=== PATIENT | female | born 1975 | race Two or more races ===

== ENCOUNTER 2017-08-21 02:39 | Emergency (ER) | payer OTHER ==
[~2017-08-21] VITALS: Ht 167.6 cm; Wt 82.6 kg
[2017-08-21 03:37] VITALS: BP 114/84
[2017-08-21] MEDS ORDERED: KETOROLAC TROMETH 30 MG/ML 1ML VIAL IV ONE (03:45)
[2017-08-21] MEDS ORDERED: SODIUM CHLORIDE 0.9% 1,000 ML IV ONE (03:45)
[2017-08-21 04:04] LABS: Basophils # (auto) 0.1 uL; Basophils % (auto) 0.8 % (0.0-2.0); Eosinophils # (auto) 0.4 uL; Eosinophils % (auto) 3.5 % (0.0-7.0); Hematocrit 39.6 % (36.0-46.0); Hemoglobin 13.3 g/dL (12.2-16.2); Lymphocytes # (auto) 1.7 uL; Lymphocytes % (auto) 17.5 % (10.0-50.0); Mean Corpuscular Hemoglobin 31.4 pg (28.0-32.0); Mean Corpuscular Hgb Conc. 33.6 g/dL (32.0-36.0); Mean Corpuscular Volume 93.6 fL (80.0-100.0); Mean Platelet Volume 8.2 fL (6.9-10.8); Monocytes # (auto) 0.6 uL; Monocytes % (auto) 6.4 % (0.0-12.0); Neutrophils # (auto) 7.2 uL; Neutrophils % (auto) 71.8 % (37.0-80.0); Platelet Count (auto) 240 10^3/uL (140-450); Red Cell Distribution Width 13.7 % (11.8-14.3)
[2017-08-21 04:25] LABS: Albumin 3.6 g/dL (3.4-5.0); BUN/Creatinine Ratio 20.8; Calcium 8.8 mg/dL (8.5-10.1); Potassium 3.7 mmol/L (3.5-5.1)
[2017-08-21 04:28] LABS: Bilirubin, Total 0.5 mg/dL (0.2-1.0); Total Protein 7.1 g/dL (6.4-8.2)
[2017-08-21 04:49] LABS: Urine Bilirubin Negative (Negative); Urine Blood 1+ /uL (Negative); Urine Color Yellow (Yellow); Urine Glucose Normal (Normal); Urine Ketone 1+ (Negative); Urine Mucus FEW (None Seen); Urine Nitrite Negative (Negative); Urine RBC 2 /hpf (0 - 4); Urine Squamous Epithelial Cell FEW /hpf (<5); Urine Urobilinogen Normal (Negative); Urine pH 5.5 (5.0-8.0)
== END 2017-08-21 05:52 | disposition home or self-care (01) ==
LOC: ER 02:39
DX: R10.9 Unspecified abdominal pain (principal); R31.9 Hematuria, unspecified; M54.5 Low back pain
CPT/HCPCS: 36415; 74176; 80053; 81001; 81025; 85025; 96361; 96374; 99285; J1885; J7030

== ENCOUNTER 2022-07-02 09:42 | Emergency (ER) | payer MEDICAID, OTHER ==
[~2022-07-02] VITALS: Ht 165.1 cm; Wt 80.0 kg
[2022-07-02 11:27] VITALS: BP 132/90
[2022-07-02] MEDS ORDERED: AZIT500T66 PO (11:35)
[2022-07-02] MEDS ORDERED: ACET-1080 PO (11:35)
== END 2022-07-02 11:47 | disposition home or self-care (01) ==
LOC: ER 09:42
DX: U07.1 COVID-19 (principal); J02.9 Acute pharyngitis, unspecified
CPT/HCPCS: 71045

== ENCOUNTER 2022-10-10 09:46 | Emergency (ER) | payer OTHER ==
[~2022-10-10] VITALS: Ht 167.6 cm; Wt 89.1 kg
[~2022-10-10 09:46] MED LIST: ACET-1080 PO; AZIT500T66 PO
[2022-10-10 10:28] VITALS: BP 148/92
[2022-10-10] MEDS ORDERED: CLIN300C8 PO (12:23)
[2022-10-10] MEDS ORDERED: IBUP800T27 PO (12:23)
== END 2022-10-10 12:17 | disposition home or self-care (01) ==
LOC: ER 09:46
DX: J02.9 Acute pharyngitis, unspecified (principal); E03.9 Hypothyroidism, unspecified; Z86.2 Personal history of diseases of the blood and blood-forming organs and certain disorders involving the immune mechanism; Z79.1 Long term (current) use of non-steroidal anti-inflammatories (NSAID); Z79.2 Long term (current) use of antibiotics; Z79.899 Other long term (current) drug therapy

== ENCOUNTER 2022-12-08 13:56 | Emergency (ER) | payer OTHER ==
[~2022-12-08] VITALS: Ht 165.1 cm; Wt 82.2 kg
[~2022-12-08 13:56] MED LIST changes: +CLIN300C8 PO; +IBUP800T27 PO
[2022-12-08 16:23] LABS: Basophils # (auto) 0 10 ^3/uL (0-0.2); Basophils % (auto) 0.5 % (0.0-2.0); Eosinophils # (auto) 0.1 10 ^3/uL (0-0.8); Eosinophils % (auto) 0.8 % (0.0-7.0); Hematocrit 42.9 % (36.0-46.0); Hemoglobin 14.4 g/dL (12.2-16.2); Lymphocytes % (auto) 23.9 % (10.0-50.0); Mean Corpuscular Hemoglobin 31.2 pg (28.0-32.0); Mean Corpuscular Hgb Conc. 33.7 g/dL (32.0-36.0); Mean Corpuscular Volume 92.6 fL (80.0-100.0); Monocytes # (auto) 0.5 10 ^3/uL (0-1.3); Monocytes % (auto) 5.7 % (0.0-12.0); Neutrophils # (auto) 5.8 10 ^3/uL (1.6-8.6); Neutrophils % (auto) 69.1 % (37.0-80.0); Nucleated Red Blood Cells % 0.1 %; Red Blood Cells 4.63 10^6/uL (4.0-5.20); Red Cell Distribution Width 13.3 % (11.8-14.3); White Blood Cell 8.4 10^3/uL (4.4-10.8)
[2022-12-08 16:42] LABS: Potassium 4.2 mmol/L (3.5-5.1)
[2022-12-08 16:43] LABS: Albumin 3.5 g/dL (3.4-5.0); BUN/Creatinine Ratio 19.3; Calcium 9.2 mg/dL (8.5-10.1)
[2022-12-08 16:47] LABS: Bilirubin, Total 0.2 mg/dL (0.2-1.0)
[2022-12-08 18:45] LABS: Urine Bacteria NONE SEEN /hpf (None Seen); Urine Blood Negative /uL (Negative); Urine Mucus FEW (None Seen); Urine WBC 1 /hpf (0 - 5)
[2022-12-09] MEDS ORDERED: CIPR-173 PO (03:25)
[2022-12-09] MEDS ORDERED: PERCOT PO (03:25)
[2022-12-09] MEDS ORDERED: ACETAMINOPHEN 500 MG TAB PO ONE (04:30)
[2022-12-09 04:37] VITALS: BP 148/86
== END 2022-12-09 04:37 | disposition home or self-care (01) ==
LOC: ER 13:56
DX: K57.30 Diverticulosis of large intestine without perforation or abscess without bleeding (principal); Z88.6 Allergy status to analgesic agent
CPT/HCPCS: 36415; 74176; 80053; 81001; 81025; 85025